=== PATIENT | female | born 1975 | race Caucasian/White ===

== ENCOUNTER 2016-09-15 20:33 | Emergency (ER) | payer OTHER ==
[~2016-09-15] VITALS: Ht 175.3 cm; Wt 160.0 kg
[~2016-09-15 20:33] MED LIST: ADVAIR 100/501 DISK IH; ALBUTEROL SULF8.5 GM IH; ATARAX,VISTARIL25 MG PO; BENADRYL25 MG PO; CLARITIN10 MG PO; DEPAKOTE ER500 MG PO; ENDOCET 5-3251 EACH PO; FERROUS SULFAT325 MG PO; FLONASE16 G1 BOTH NARES; FLOVENT 11120 INHALA IH; HUMULIN 70100 UNIT/2 SC; HUMULIN R100 UNITS/ SC; IBUPROFEN800 MG PO; LANTUS 10100 UNITS/ IJ; LANTUS 10100 UNITS/ SC; LATUDA120 MG PO; LATUDA40 MG PO; LATUDA60 MG PO; LISINOPRIL10 MG PO; LITHIUM; LOVENOX40 MG/0.4 SC; LYRICA75 MG PO; MINIPRESS1 MG PO; MOTRIN800 MG PO; NOHOMEMEDS; TESSALON PERLE100 MG PO; TRAMADOL HCL50 MG PO; VAGISIL TP; VITAMIN D2000 UNIT PO; VITAMIN D31000 UNI2 PO; WELLBUTRIN SR200 MG PO; WELLBUTRIN XL150 MG PO; WELLBUTRIN XL300 MG PO; XANAX0.25 MG PO
[2016-09-15] MEDS ORDERED: VALIUM5 MG PO (23:19)
[2016-09-15 23:58] VITALS: BP 134/63
== END 2016-09-15 23:59 | disposition home or self-care (01) ==
LOC: EME 20:33
DX: S30.0XXA Contusion of lower back and pelvis, initial encounter (principal); E11.9 Type 2 diabetes mellitus without complications; I10 Essential (primary) hypertension; W01.0XXA Fall on same level from slipping, tripping and stumbling without subsequent striking against object, initial encounter
CPT/HCPCS: 72100; 72170; 99281; 99284

== ENCOUNTER → 2018-02-17 | Outpatient (CLI) | payer OTHER ==
[~2018-02-17] MED LIST changes: +VALIUM5 MG PO
== END | disposition home or self-care (01) ==
LOC: RAD 15:16 → NUC 15:16
DX: R07.9 Chest pain, unspecified (principal); R79.89 Other specified abnormal findings of blood chemistry
CPT/HCPCS: 78582; A9540; A9567